=== PATIENT | male | born 1940 | race Caucasian/White ===

== ENCOUNTER 2017-09-21 00:43 | Emergency (ER) | payer OTHER ==
--- OUTSIDE RECORDS SUMMARY | 2017-09-21 00:46 | XMS REPORT | Clinical Summary ---
:1940 Author Organization [facility] Address [address] [place] [address] Phone Care Team Providers Name Role Phone Unavailable Primary Care Provider Unavailable Allergies Active Allergy Reactions Severity Noted Date Comments Levofloxacin 10/11/2016 Penicillins 10/11/2016 Sulfa (Sulfonamide Antibiotics) 10/11/2016 Current Medications Not on file Active Problems Not on file Encounters Date Type Specialty Care Team Description 11/02/2016 Hospital Encounter Cardiology Yoana Perez Syncope, unspecified MD Jessica syncope type 11/01/2016 Outside Orders Central Scheduling Yoana Perez Syncope, unspecified MD Jessica syncope type (Primary Dx) after 09/20/2016 Social History Tobacco Use Types Packs/Day Years Used Date Never Assessed Sex Assigned at Date Recorded Not on file Last Filed Vital Signs Not on file Plan of Treatment Not on file Results ARRYTHMIA IMPLANT REPORT - SCAN (12/07/2016 1:40 PM)after 09/20/2016
[2017-09-21] MEDS ORDERED: IBUPROFEN 400 MG TAB ONE (01:22)
[2017-09-21] MEDS ORDERED: NA CHLORIDE 0.9% 1,000 ML ONE (01:22)
[2017-09-21 01:37] LABS: Absolute Lymphocytes (CBC) 1.9 K/uL (0.7-4.9); Absolute Monocytes 1.6 K/uL (0.1-1.3); Absolute Neutrophil 9.5 K/uL (1.8-8.0); Basophils % 0.3 % (0-1.3); Hematocrit 39.3 % (39.6-49.0); Lymphocytes % 14.8 % (15.3-44.8); MCH 29.6 pg (27.0-35.0); MCV 89.8 fL (80-100); MPV 7.5 fL (7.6-11.3); Monocytes % 12.3 % (3.3-12.3); RBC Red Blood Cell Count 4.38 M/uL (4.33-5.43)
[2017-09-21 01:44] LABS: Potassium 3.8 mEq/L (3.6-5.0)
--- NOTE | 2017-09-21 02:18 | EDPHYS ---
Physician Documentation [facility] Name: Gary Grimaldo Jr Age: 76 yrs Sex: Male : 1940 Arrival Date: 09/21/2017 Time: 00:50 Bed 17 Private MD: Jacky Mcmahon R ED Physician Mt Gunter HPI: 09/21 01:27 This 76 yrs old Male presents to ER via Ambulatory with complaints of Fever, jr8 Sleeping a lot. 01:27 The patient reports fever, with an emergency department temperature of 100.2 degrees jr8 Fahrenheit. Onset: The symptoms/episode began/occurred acutely, yesterday. Modifying factors: there are no obvious modifying factors. Associated signs and symptoms: Pertinent positives: cough, sore throat. Severity of symptoms: At their worst the symptoms were moderate in the emergency department the symptoms are unchanged. The patient has not experienced similar symptoms in the past. The patient has not recently seen a physician. Patient stated that he has been much more weak then normal. concerned because he has been sleeping all day. Historical: - Allergies: 01:09 Codeine; bp 01:09 PENICILLINS; bp 01:09 Levaquin; bp 01:09 Sulfa (Sulfonamide Antibiotics); bp - Home Meds: 01:09 Multaq 400 mg oral tab [Active]; primidone Oral [Active]; bp - PMHx: 01:09 ESSENTIAL TREMORS; IRREGULAR HEARTRATE; bp - Immunization history:: Adult Immunizations up to date. - Social history:: Smoking status: Patient/guardian denies using tobacco. ROS: 01:27 Eyes: Negative for injury, pain, redness, and discharge, Neck: Negative for injury, jr8 pain, and swelling, Cardiovascular: Negative for chest pain, palpitations, and edema, Abdomen/GI: Negative for abdominal pain, nausea, vomiting, diarrhea, and constipation, Back: Negative for injury and pain, MS/Extremity: Negative for injury and deformity, Skin: Negative for injury, rash, and discoloration, Neuro: Negative for headache, weakness, numbness, tingling, and seizure. 01:27 Constitutional: Positive for fatigue, fever, malaise. 01:27 ENT: Positive for sore throat, Negative for drainage from ear(s), ear pain, nasal discharge, sinus congestion, sinus pain, difficulty swallowing, difficulty handling secretions, hoarseness. 01:27 Respiratory: Positive for cough, Negative for dyspnea on exertion, shortness of breath, sputum production, wheezing. Exam: : Constitutional: This is a well developed, well nourished patient who is awake, alert, jr8 and in no acute distress. Head/Face: Normocephalic, atraumatic. Eyes: Pupils equal round and reactive to light, extra-ocular motions intact. Lids and lashes normal. Conjunctiva and sclera are non-icteric and not injected. Cornea within normal limits. Periorbital areas with no swelling, redness, or edema. Neck: Trachea midline, no thyromegaly or masses palpated, and no cervical lymphadenopathy. Supple, full range of motion without nuchal rigidity, or vertebral point tenderness. No Meningismus. Cardiovascular: Regular rate and rhythm with a normal S1 and S2. No gallops, murmurs, or rubs. Normal PMI, no JVD. No pulse deficits. Respiratory: Lungs have equal breath sounds bilaterally, clear to auscultation and percussion. No rales, rhonchi or wheezes noted. No increased work of breathing, no retractions or nasal flaring. Abdomen/GI: Soft, non-tender, with normal bowel sounds. No distension or tympany. No guarding or rebound. No evidence of tenderness throughout. Back: No spinal tenderness. No costovertebral tenderness. Full range of motion. Skin: Warm, dry with normal turgor. Normal color with no rashes, no lesions, and no evidence of cellulitis. MS/ Extremity: Pulses equal, no cyanosis. Neurovascular intact. Full, normal range of motion. Neuro: Awake and alert, GCS 15, oriented to person, place, time, and situation. Cranial nerves II-XII grossly intact. Motor strength 5/5 in all extremities. Sensory grossly intact. Cerebellar exam normal. Normal gait. :27 ENT: Exam is negative for earache, ear discharge, TM abnormalities, nasal discharge, Mouth: Lips: moist, Oral mucosa: pink and intact, moist, Gums: pink, Tongue: is moist, Posterior pharynx: Airway: patent, Tonsils: with erythema, no exudate, no ulcerations, Uvula: midline, non-edematous, no erythema, swelling, is not appreciated, erythema, that is mild. Vital Signs: 01:09 BP 146 / 60; Pulse 81; Resp 16; Temp 100.2; Pulse Ox 95% ; Weight 97.52 kg; Height 5 bp ft. 6 in. (167.64 cm); 01:52 BP 134 / 63; Pulse 72; Resp 16; Pulse Ox 97% ; bp 02:14 BP 138 / 59; Pulse 69; Resp 16; Temp 99.0; Pulse Ox 96% on R/A; bp 01:09 Body Mass Index 34.70 (97.52 kg, 167.64 cm) bp MDM: 01:04 Patient medically screened. 8 02:16 Data reviewed: vital signs, nurses notes, lab test result(s), radiologic studies, plain jr8 films, and as a result, I will discharge patient. Data interpreted: Pulse oximetry: on room air is 97 %. Interpretation: normal. Counseling: I had a detailed discussion with the patient and/or guardian regarding: the historical points, exam findings, and any diagnostic results supporting the discharge/admit diagnosis, lab results, radiology results, the need for outpatient follow up, a family practitioner, to return to the emergency department if symptoms worsen or persist or if there are any questions or concerns that arise at home. Response to treatment: the patient's symptoms have markedly improved after treatment, patient is well hydrated. 09/21 01:16 Order name: Influenza Screen (a \T\ B); Complete Time: 01:50 09/21 01:16 Order name: Strep; Complete Time: 01:50 09/21 01:16 Order name: XRAY Chest (1 view) 09/21 01:16 Order name: CBC with Diff; Complete Time: 01:38 09/21 01:16 Order name: Basic Metabolic Panel; Complete Time: :50 09/21 01:16 Order name: IV; Complete Time: : Administered Medications: 01:29 Drug: NS 0.9% 1000 ml Route: IV; Rate: 1000 ml; Site: right antecubital; bp 02:39 Follow up: IV Status: Completed infusion; IV Intake: 1000ml bp 01:29 Drug: Motrin 600 mg Route: PO; bp 02:19 Follow up: Response: Temperature is decreased bp Disposition: 07:56 Co-signature as Attending Physician, Mt Gunter MD I agree with the assessment and jacinto plan of care. Disposition: 09/21/17 02:17 Discharged to Home. Impression: Viral infection, unspecified, Dehydration. - Condition is Stable. - Discharge Instructions: Dehydration, Adult, Viral Infections. - Medication Reconciliation Form, Thank You Letter, Antibiotic Education, Prescription Opioid Use form. - Follow up: Jacky Mcmahon MD; When: 1 - 2 days; Reason: Recheck today's complaints, Continuance of care, Re-evaluation by your physician. - Problem is new. - Symptoms have improved. Signatures: Dispatcher [employer] EDMS Mt Gunter MD MD cha Roszak, Josh, PA PA jr8 Perico Ren, RN RN bp Corrections: (The following items were deleted from the chart) 01:56 01:55 Urine Dipstick-Ancillary ordered. jr8 jr8
--- NOTE | 2017-09-21 02:18 | ER ---
Nurse's Notes [facility] Name: Gary Grimaldo Jr Age: 76 yrs Sex: Male : 1940 Arrival Date: 09/21/2017 Time: 00:50 Bed 17 Private MD: Jacky Mcmahon R Diagnosis: Viral infection, unspecified;Dehydration Presentation: 09/21 01:05 Presenting complaint: Patient states: I'VE HAD A FEVER AND FELT LIKE I HAD THE FLU. bp Transition of care: patient was not received from another setting of care. Onset of symptoms was September 18, 2017. Initial Sepsis Screen: Does the patient meet any 2 criteria? No. Patient's initial sepsis screen is negative. Does the patient have a suspected source of infection? No. Patient's initial sepsis screen is negative. Care prior to arrival: None. 01:05 Method Of Arrival: Ambulatory bp 01:05 Acuity: MARIO 3 bp Triage Assessment: 01:09 General: Appears in no apparent distress. comfortable, ill, Behavior is calm, bp cooperative, appropriate for age. Pain: Complains of pain in left aspect of posterior pharynx and right aspect of posterior pharynx. EENT: No deficits noted. Neuro: Level of Consciousness is awake, alert, obeys commands, Oriented to person, place, time, situation, Appropriate for age. Cardiovascular: No deficits noted. Respiratory: Airway is patent Respiratory effort is even, unlabored, Respiratory pattern is regular, symmetrical. GI: No deficits noted. : No signs and/or symptoms were reported regarding the genitourinary system. Derm: No signs and/or symptoms reported regarding the dermatologic system. Musculoskeletal: Circulation, motion, and sensation intact. Range of motion:. Historical: - Allergies: 01:09 Codeine; bp 01:09 PENICILLINS; bp 01:09 Levaquin; bp 01:09 Sulfa (Sulfonamide Antibiotics); bp - Home Meds: 01:09 Multaq 400 mg oral tab [Active]; primidone Oral [Active]; bp - PMHx: 01:09 ESSENTIAL TREMORS; IRREGULAR HEARTRATE; bp - Immunization history:: Adult Immunizations up to date. - Social history:: Smoking status: Patient/guardian denies using tobacco. Screenin:12 Abuse screen: Denies threats or abuse. Denies injuries from another. Nutritional bp screening: No deficits noted. Tuberculosis screening: No symptoms or risk factors identified. Fall Risk None identified. Assessment: 01:12 Reassessment: SEE TRIAGE NOTE. bp 02:18 Reassessment: ALL CURRENT EXAMS RESULTED AND UNREMARKABLE. D/C ON HOLD FOR IVF bp COMPLETION. 02:37 Reassessment: PT D/C HOME WITH FAMILY, DX WITH UNSPECIFIED VIRUS AND DEHYDRATION. bp Vital Signs: 01:09 BP 146 / 60; Pulse 81; Resp 16; Temp 100.2; Pulse Ox 95% ; Weight 97.52 kg; Height 5 bp ft. 6 in. (167.64 cm); 01:52 BP 134 / 63; Pulse 72; Resp 16; Pulse Ox 97% ; bp 02:14 BP 138 / 59; Pulse 69; Resp 16; Temp 99.0; Pulse Ox 96% on R/A; bp 01:09 Body Mass Index 34.70 (97.52 kg, 167.64 cm) bp ED Course: 00:50 Patient arrived in ED. es 00:50 Jacky Mcmahon MD is Private Physician. es 00:56 Perico Ren, MARCIA is Primary Nurse. bp 01:04 Ran Menjivar PA is PHCP. jr8 01:04 Mt Gunter MD is Attending Physician. jr8 01:06 Triage completed. bp 01:09 Arm band placed on. bp 01:12 Patient has correct armband on for positive identification. Bed in low position. Call bp light in reach. Side rails up X2. Adult w/ patient. 01:30 Inserted saline lock: 20 gauge in right antecubital area, using aseptic technique. bp Blood collected. 01:34 X-ray completed. Portable x-ray completed in exam room. Patient tolerated procedure kw well. 01:37 XRAY Chest (1 view) In Process Unspecified. EDMS 02:16 Jacky Mcmahon MD is Referral Physician. jr8 02:37 No provider procedures requiring assistance completed. IV discontinued, intact, bp bleeding controlled, No redness/swelling at site. Pressure dressing applied. Administered Medications: 01:29 Drug: NS 0.9% 1000 ml Route: IV; Rate: 1000 ml; Site: right antecubital; bp 02:39 Follow up: IV Status: Completed infusion; IV Intake: 1000ml bp 01:29 Drug: Motrin 600 mg Route: PO; bp 02:19 Follow up: Response: Temperature is decreased bp Intake: 02:39 IV: 1000ml; Total: 1000ml. bp Outcome: 02:17 Discharge ordered by MD. fernandez 02:38 Discharged to home via wheelchair, with family. bp 02:38 Condition: stable 02:38 Discharge instructions given to patient, family, Instructed on discharge instructions, follow up and referral plans. Demonstrated understanding of instructions, follow-up care. 02:40 Patient left the ED. bp Signatures: Dispatcher [employer] Amber Luna Kimberlee kw Roszak, Josh, PA PA jr8 Perico Ren, RN RN bp
--- NOTE | 2017-09-21 08:58 | RAD REPORT ---
EXAM DESCRIPTION: RAD - Chest Single View - 09/21/2017 1:37 am CLINICAL HISTORY: Chest pain. COMPARISON: 06/06/2010 FINDINGS: Portable technique limits examination quality. The lungs are grossly clear. The heart is normal in size. No displaced fractures.Defibrillator noted. Cervical spine fusion plate is present. IMPRESSION: No acute intrathoracic process suspected.
== END 2017-09-21 02:40 | disposition home or self-care (01) ==
LOC: ER 00:43
DX: B34.9 Viral infection, unspecified (principal); E86.0 Dehydration; Z88.0 Allergy status to penicillin; Z88.1 Allergy status to other antibiotic agents; Z88.2 Allergy status to sulfonamides; Z88.5 Allergy status to narcotic agent
CPT/HCPCS: 36415; 71045; 80048; 85025; 87070; 87081; 87804 ×2; 96360; 99284; J7030

== ENCOUNTER 2019-05-04 20:11 | Observation (INO) | payer OTHER ==
--- OUTSIDE RECORDS SUMMARY | 2019-05-04 20:14 | XMS REPORT | Summary of Care ---
:1940 Author Organization [facility] [place] [address] Care Team Providers Name Role Phone Jacky Russo MD Primary Care Provider Reason for Visit Reason Comments Skin Check upper body Encounter Details Date Type Department Care Team Description 01/17/2019 Office Visit [facility] Gwen Saha, Skin Check ( upper Medicine Dermatology MD body) [address], [place] [address],[place] [address] [address] [place] [address] [phone] Allergies Active Allergy Reactions Severity Noted Date Comments Levaquin Medium 11/03/2011 Penicillins Medium 11/03/2011 Sulfa Drugs Cross Reactors Medium 11/03/2011 documented as of this encounter (statuses as of 01/20/2019) Medications Medication Sig Dispensed Refills Start Date End Date Status Dronedarone HCl Take by mouth. 0 Active (MULTAQ OR) ASPIRIN 0 Active primidone (MYSOLINE) 0 03/15/2017 Active 50 MG tablet MULTAQ 400 MG TABS 0 03/20/2017 Active fluoruracil (CARAC) Apply to affected 30 g 3 08/02/2018 Active 0.5 % cream skin daily for 30 days. If overly irritated please stop applying for 3-5 days. fluorouracil (EFUDEX) Apply topically to 40 g 3 08/06/2018 Active 5 % cream affected area twice a day for 2-4 weeks metoprolol (LOPRESSOR) Take 25 mg by 0 Active 25 MG tablet mouth. ketoconazole (NIZORAL) Apply to scalp 120 mL 3 10/24/2018 Active 2 % shampoo 2-3x per week documented as of this encounter (statuses as of 01/20/2019) Active Problems Problem Noted Date Multiple melanocytic nevi 06/17/2015 Squamous cell carcinoma 02/27/2015 BCC (basal cell carcinoma), face 11/26/2012 Contact dermatitis 04/06/2012 AK (actinic keratosis) 11/03/2011 Lentigo 11/03/2011 Keratosis seborrheica 11/03/2011 Personal history of skin cancer 11/03/2011 Personal history of malignant melanoma 11/03/2011 documented as of this encounter (statuses as of 01/20/2019) Resolved Problems Problem Noted Date Resolved Date Neoplasm of uncertain behavior of skin 11/03/2011 02/27/2015 Benign neoplasm of other specified sites of skin 11/03/2011 02/27/2015 documented as of this encounter (statuses as of 01/20/2019) Social History Tobacco Use Types Packs/Day Years Used Date Never Smoker Smokeless Tobacco: Current User Sex Assigned at Date Recorded Not on file Job Start Date Occupation Industry Not on file Not on file Not on file Travel History Travel Start Travel End No recent travel history available. documented as of this encounter Last Filed Vital Signs Not on filedocumented in this encounter Progress Notes Gwen Saha MD - 01/17/2019 2:45 PM CDTTeaching Physician Note - I personally examined this patient with the resident. I agree with all the components of the exam as delineated in the resident's note above. I have personally reviewed the past medical records. I have discussed the patient's case with the resident and agree with the history as well as diagnosis and assessment/plan--see resident note for full details All procedures were performed by me, personally Gwen Saha MD Public Health Training Assistant Dermatology lAnna herring MD - 01/17/2019 2:45 PM CDT This is a 78 y.o. wm who presents for f/u for NMSC The patient is concerned about skin cancer and points to multiple areas of concern Patient is presently complaining of spots on body, Scaling face Patient's history is notable for nmsc and MM Physical exam: well developed, well nourished, anicteric wm, alert and oriented , non anxious, in noacute distress. Upper body exam. The following areas were examined: scalp, ears, face, eyelids, lips, neck, chest, abdomen, back, bilateral upper extremities, bilateral hands. All were found to be normal aside from the following findings: 1. Regular brown/veliz/pink macules/papules face, torso, extremities 2. Well healed scars No cervical, axillary lymphadenopathy 3. Scaly firm papule R forearm 4. Rough scaling macules Face and bilateral forearms 5. erythematous scaling patches face and scalp 6. [place] scaly macule of L neck Assessment and Plan: 1. Nevi, lentigines, Seborrheic keratoses: -self skin checks -Sun protection discussed -yearly exams or as directed -discussed signs of worrisome change Also recommended yearly dental exams, notification if hairdresser notices anything abnormal 2. H/o nmsc: No evidence of recurrence, follow History of melanoma: No evidence of recurrence, continue skin checks, Sun protection discussed, self checks 3. isk R/o scc: After risks and benefits explained, consent obtained, tangential biopsy x 1 was performed on right forearm to remove epidermal and partial dermal tissue for the purpose of diagnostic pathologic examination, patient tolerated well, Wound care reviewed 4. AKs: Risks benefits explained, consent obtained LN2 x >15 face and neck, patient tolerated well 5. leonid derm, improving: Reassurance. C/w Ketoconazole shampoo 2-3 times weekly 6. NUB ddx AK s/p LN treatment r/o SCC: After risks and benefits explained, consent obtained, tangential biopsy x 1 was performed on left neck to remove epidermal and partial dermal tissue for the purpose of diagnostic pathologic examination, patient tolerated well, Wound care reviewed rv 3mo documented in this encounter Plan of Treatment Date Type Specialty Care Team Description 04/18/2019 Office Visit Dermatology Gwen Saha MD [address] [place] [address] [address] [place] [address] 07/23/2019 Office Visit Dermatology Gwen Saha MD [address] [place] [address] [address] [place], [place] [id number] Name Type Priority Associated Diagnoses Order Schedule CA TANGENTIAL BIOPSY CA Charge Routine Neoplasm of uncertain Ordered: 01/20 SKIN SINGLE LESION behavior of skin CA TANGENTIAL BIOPSY CA Charge Routine Neoplasm of uncertain Ordered: 01/20 SKIN EA SEP/ADDITIONAL behavior of skin LESION CA DESTRUC CA Charge Routine AK (actinic keratosis) Ordered: 01/20/2019 PREMALIGNANT,15+ LESIONS(90500) Health Maintenance Due Date Last Done Comments MEDICARE AWV 1940 TETANUS SHOT (ADULT) 1957 BMI FOLLOW UP PLAN 1960 FALL SCREEN 12/11/2007 PNEUMOVAX >=65 (PPSV23) 12/11/2007 PREVNAR >=65 (PCV13) 12/11/2007 FLU VACCINE > 6 MONTHS 12/27/2018 documented as of this encounter Results Not on filedocumented in this encounter Visit Diagnoses Diagnosis Neoplasm of uncertain behavior of skin - Primary AK (actinic keratosis) Actinic keratosis Lentigo Other dyschromia Keratosis seborrheica Other seborrheic keratosis Personal history of skin cancer Personal history of other malignant neoplasm of skin Personal history of malignant melanoma Personal history of malignant melanoma of skin Multiple melanocytic nevi documented in this encounter Insurance Payer Benefit Plan / Subscriber ID Effective Dates Phone Address Type Group MEDICARE MEDICARE PART A xxxxxxxxxxx 2014-Present [address] Medicare & [place] [address] [employer] INDEMNITY/TRADIT xxxxxxxxx 2016-Present [address] Indemnity [employer] - [place], [place] [employer] [phone] documented as of this encounter
[2019-05-04] MEDS ORDERED: CEFTRIAXONE/SWI 1gm 2 GM/20 ML SYR ONE (21:44)
[2019-05-04] MEDS ORDERED: NA CHLORIDE 0.9% 1,000 ML ONE (21:44)
[2019-05-04] MEDS ORDERED: METRONIDAZOLE 500mg IVPB 500 MG/100 ML BAG IV ONE (21:44)
[2019-05-04 22:01] LABS: Absolute Lymphocytes (CBC) 2.4 K/uL (0.7-4.9); Basophils % 0.7 % (0-1.3); Hematocrit 39.4 % (39.6-49.0); Lymphocytes % 26.9 % (15.3-44.8); RBC Red Blood Cell Count 4.34 M/uL (4.33-5.43)
[2019-05-04 22:08] LABS: Protime INR 1.04
[2019-05-04 22:19] LABS: ALT/SGPT 19 U/L (12-78); AST/SGOT 8 U/L (15-37); Albumin 3.3 g/dL (3.4-5.0); Alkaline Phosphatase 84 U/L (45-117); BUN Blood Urea Nitrogen 15 mg/dL (7-18); Bicarbonate 31 mmol/L (21-32); Bilirubin Direct < 0.1 mg/dL (0-0.2); Bilirubin Total 0.3 mg/dL (0.2-1.0); Glucose Level 94 mg/dL (74-106); Lipase 160 U/L (73-393); Magnesium 2.5 mg/dL (1.8-2.4); NT PRO-BNP 199 pg/mL (<450); Potassium 3.9 mmol/L (3.5-5.1); Protein, Total 6.7 g/dL (6.4-8.2); Sodium Level 140 mmol/L (136-145); Troponin (Emerg Dept Use Only) < 0.02 ng/mL (0.0-0.045)
--- NOTE | 2019-05-05 00:25 | ER ---
Nurse's Notes [facility] Name: Gary Grimaldo Jr Age: 78 yrs Sex: Male : 1940 Arrival Date: 05/04/2019 Time: 20:[address] Private MD: Diagnosis: Gastrointestinal hemorrhage, unspecified-lower;Abdominal tenderness;Pleural effusion in conditions classified elsewhere Presentation: 05/04 20:39 Presenting complaint: Patient states: Rectal bleed started this afternoon about 6pm. ca1 Heavy and bright red with clots. Bleeding is described as oozing and difficult to stop. We had to pack him. Takes baby aspirin daily for a long time. No history of GI bleed. Couple days, felt abdominal pain on the L side. Denies dizziness and lightheadedness, diarrhea. Transition of care: patient was not received from another setting of care. Onset of symptoms was May 04, 2019. Risk Assessment: Do you want to hurt yourself or someone else? Patient reports no desire to harm self or others. Initial Sepsis Screen: Does the patient meet any 2 criteria? No. Patient's initial sepsis screen is negative. Does the patient have a suspected source of infection? No. Patient's initial sepsis screen is negative. Care prior to arrival: None. 20:39 Method Of Arrival: Ambulatory ca1 20:39 Acuity: MARIO 3 ca1 Historical: - Allergies: 20:49 PENICILLINS; ca1 20:49 Codeine; ca1 20:49 Levaquin; ca1 20:49 Sulfa (Sulfonamide Antibiotics); ca1 - PMHx: 20:49 ESSENTIAL TREMORS; IRREGULAR HEARTRATE; ca1 - PSHx: 20:49 CABG; Tonsillectomy; Shoulder Surgery; ca1 - Immunization history:: Adult Immunizations up to date, Flu vaccine is up to date. Pneumococcal vaccine is up to date. - Social history:: Smoking status: Patient/guardian denies using tobacco. - Ebola Screening: : Patient negative for fever greater than or equal to 101.5 degrees Fahrenheit, and additional compatible Ebola Virus Disease symptoms Patient denies exposure to infectious person Patient denies travel to an Ebola-affected area in the 21 days before illness onset No symptoms or risks identified at this time. - Family history:: not pertinent. Screenin:29 Abuse screen: Denies threats or abuse. Denies injuries from another. Nutritional rr5 screening: No deficits noted. Tuberculosis screening: No symptoms or risk factors identified. Fall Risk IV access (20 points). Total Smith Fall Scale indicates No Risk (0-24 pts). Assessment: 21:30 General: Appears in no apparent distress. comfortable, Behavior is calm, cooperative, rr5 appropriate for age. 21:30 Pain: Complains of pain in left lower quadrant Pain does not radiate. Pain Quality of rr5 pain is described as aching, Pain began gradually, Is intermittent. Neuro: Level of Consciousness is awake, alert, obeys commands, Oriented to person, place, time, situation, Appropriate for age. Cardiovascular: Capillary refill < 3 seconds Patient's skin is warm and dry. Respiratory: Airway is patent Respiratory effort is even, unlabored, Respiratory pattern is regular, symmetrical. GI: Abdomen is round Stools are reported to be bright red stool. Reports lower abdominal pain, bloody stool. : No signs and/or symptoms were reported regarding the genitourinary system. EENT: No signs and/or symptoms were reported regarding the EENT system. Derm: Skin is intact, is healthy with good turgor, Skin temperature is warm. Musculoskeletal: Circulation, motion, and sensation intact. Capillary refill < 3 seconds. 23:00 Reassessment: Patient appears in no apparent distress at this time. Patient is alert, rr5 oriented x 3, equal unlabored respirations, skin warm/dry/pink. oral contrast consumed. CT staff informed. 05/05 00:00 Reassessment: Patient appears in no apparent distress at this time. Patient is alert, rr5 oriented x 3, equal unlabored respirations, skin warm/dry/pink. no complaints made awaiting for CT report. 01:00 Reassessment: Patient appears in no apparent distress at this time. No changes from rr5 previously documented assessment. Patient is alert, oriented x 3, equal unlabored respirations, skin warm/dry/pink. 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 Reassessment: hospitalist at bedside examining the patient. 01:55 Reassessment: Patient appears in no apparent distress at this time. Patient is alert, rr5 oriented x 3, equal unlabored respirations, skin warm/dry/pink. hospitalist informed BP 177/75 mmHg with verbal order made and carried out. Vital Signs: 05/04 20:49 BP 179 / 83; Pulse 70; Resp 16 S; Temp 98.2(O); Pulse Ox 97% on R/A; Weight 94.35 kg ca1 (R); Height 5 ft. 7 in. (170.18 cm) (R); Pain 0/10; 22:05 BP 182 / 78; Pulse 60; Resp 16; Pulse Ox 98% ; rr5 23:00 BP 201 / 98; Pulse 71; Resp 18; Pulse Ox 99% ; rr5 05/05 00:00 BP 172 / 88; Pulse 71; Resp 80; Pulse Ox 98% ; rr5 01:00 BP 163 / 104; Pulse 79; Resp 17; Pulse Ox 100% ; rr5 01:40 BP 179 / 85; Pulse 68; Resp 16; Pulse Ox 98% on R/A; rr5 01:55 BP 177 / 75; Pulse 72; Resp 18; Temp 98.1; Pulse Ox 99% ; rr5 02:05 BP 157 / 70; Pulse 69; Resp 15; Pulse Ox 99% on R/A; rr5 05/04 20:49 Body Mass Index 32.58 (94.35 kg, 170.18 cm) ca1 05/04 23:00 ED provider aware rr5 ED Course: 20:13 Patient arrived in ED. cl3 20:47 Triage completed. ca1 20:49 Arm band placed on right wrist. ca1 21:25 Mt Gunter MD is Attending Physician. jacinto 21:29 Efrem Ramos, MARCIA is Primary Nurse. rr5 21:30 Patient has correct armband on for positive identification. Placed in gown. Bed in low rr5 position. Call light in reach. Side rails up X2. school lunch monitor on. Pulse ox on. NIBP on. 21:57 Initial lab(s) drawn, by ma, sent to lab. Inserted saline lock: 20 gauge in right ak1 antecubital area, using aseptic technique. Blood collected. 22:00 EKG done, by ED staff, reviewed by Mt Gunter MD. rr5 23:26 XRAY Chest (1 view) In Process Unspecified. EDMS 12 00:23 Kumar Jesus MD is Hospitalizing Provider. jacinto 00:47 CT Abd/Pelvis - PO and IV Contrast In Process Unspecified. EDMS 02:04 No provider procedures requiring assistance completed. Patient admitted, IV remains in rr5 place. intact, No redness/swelling at site. Administered Medications: 05/04 21:45 Drug: NS 0.9% 1000 ml Route: IV; Rate: 1 bolus; Site: right antecubital; rr5 23:00 Follow up: Response: No adverse reaction; IV Status: Completed infusion; IV Intake: rr5 1000ml 21:46 Drug: Rocephin 2 grams Route: IV; Rate: per protocol; Site: right antecubital; rr5 05/05 02:07 Follow up: Response: No adverse reaction; IV Status: Completed infusion; IV Intake: [id number] 05/04 22:02 Drug: Flagyl 500 mg Volume: 100 ml; Route: IVPB; Rate: 200 ml/hr; Infused Over: 30 rr5 mins; Site: right antecubital; 22:30 Follow up: Response: No adverse reaction; IV Status: Completed infusion; IV Intake: rr5 100ml 05/05 01:58 Drug: hydrALAZINE 10 mg {Note: verbal order by .} Route: IV; Rate: bolus; Site: rr5 right antecubital; 02:06 Follow up: Response: Blood pressure is lowered; IV Status: Completed infusion rr5 Intake: 05/04 22:30 IV: 100ml; Total: 100ml. rr5 23:00 IV: 1000ml; Total: 1100ml. rr5 05/05 02:07 IV: 20ml; Total: 1120ml. rr5 Outcome: 00:24 Decision to Hospitalize by Provider. jacinto 02:04 Admitted to Med/surg accompanied by tech, room 215, with chart, Report called to rr5 carl 02:04 Condition: stable 02:04 Instructed on the need for admit. 02:27 Patient left the ED. rr5 Signatures: Dispatcher [employer] EDMS Mt Gunter MD MD cha Krenek, Amber RN RN ak1 Efrem Ramos RN RN rr5 Melisa Cox RN RN ca1 Teresa Rodriguez cl3
--- NOTE | 2019-05-05 00:26 | EDPHYS ---
Physician Documentation [facility] Name: Gary Grimaldo Jr Age: 78 yrs Sex: Male : 1940 Arrival Date: 05/04/2019 Time: 20:[address] Private MD: ED Physician Mt Gunter HPI: 05/04 21:39 This 78 yrs old Male presents to ER via Ambulatory with complaints of Rectal jcainto Bleeding. 21:39 The patient presents to the emergency department with bleeding from the rectum/anus. jacinto Onset: The symptoms/episode began/occurred 2 day(s) ago. Context: the patient has no known special context relating to the rectal area complaint(s). Modifying factors: The symptoms are alleviated by nothing, The symptoms are aggravated by bowel movement. Associate signs and symptoms: The patient has no apparent associated signs or symptoms. The patient has not experienced similar symptoms in the past. Historical: - Allergies: 20:49 PENICILLINS; ca1 20:49 Codeine; ca1 20:49 Levaquin; ca1 20:49 Sulfa (Sulfonamide Antibiotics); ca1 - PMHx: 20:49 ESSENTIAL TREMORS; IRREGULAR HEARTRATE; ca1 - PSHx: 20:49 CABG; Tonsillectomy; Shoulder Surgery; ca1 - Immunization history:: Adult Immunizations up to date, Flu vaccine is up to date. Pneumococcal vaccine is up to date. - Social history:: Smoking status: Patient/guardian denies using tobacco. - Ebola Screening: : Patient negative for fever greater than or equal to 101.5 degrees Fahrenheit, and additional compatible Ebola Virus Disease symptoms Patient denies exposure to infectious person Patient denies travel to an Ebola-affected area in the 21 days before illness onset No symptoms or risks identified at this time. - Family history:: not pertinent. ROS: 21:39 Constitutional: Negative for fever, chills, and weight loss, Eyes: Negative for injury, jacinto pain, redness, and discharge, ENT: Negative for injury, pain, and discharge, Neck: Negative for injury, pain, and swelling, Cardiovascular: Negative for chest pain, palpitations, and edema, Respiratory: Negative for shortness of breath, cough, wheezing, and pleuritic chest pain, Back: Negative for injury and pain, : Negative for injury, bleeding, discharge, and swelling, MS/Extremity: Negative for injury and deformity, Skin: Negative for injury, rash, and discoloration, Neuro: Negative for headache, weakness, numbness, tingling, and seizure, Psych: Negative for depression, anxiety, suicide ideation, homicidal ideation, and hallucinations, Allergy/Immunology: Negative for hives, rash, and allergies, Endocrine: Negative for neck swelling, polydipsia, polyuria, polyphagia, and marked weight changes, Hematologic/Lymphatic: Negative for swollen nodes, abnormal bleeding, and unusual bruising. 21:39 Abdomen/GI: Positive for abdominal cramps, rectal bleeding. Exam: 21:39 Constitutional: This is a well developed, well nourished patient who is awake, alert, jacinto and in no acute distress. Head/Face: Normocephalic, atraumatic. Eyes: Pupils equal round and reactive to light, extra-ocular motions intact. Lids and lashes normal. Conjunctiva and sclera are non-icteric and not injected. Cornea within normal limits. Periorbital areas with no swelling, redness, or edema. ENT: Nares patent. No nasal discharge, no septal abnormalities noted. Tympanic membranes are normal and external auditory canals are clear. Oropharynx with no redness, swelling, or masses, exudates, or evidence of obstruction, uvula midline. Mucous membranes moist. Neck: Trachea midline, no thyromegaly or masses palpated, and no cervical lymphadenopathy. Supple, full range of motion without nuchal rigidity, or vertebral point tenderness. No Meningismus. Chest/axilla: Normal chest wall appearance and motion. Nontender with no deformity. No lesions are appreciated. Cardiovascular: Regular rate and rhythm with a normal S1 and S2. No gallops, murmurs, or rubs. Normal PMI, no JVD. No pulse deficits. Respiratory: Lungs have equal breath sounds bilaterally, clear to auscultation and percussion. No rales, rhonchi or wheezes noted. No increased work of breathing, no retractions or nasal flaring. Back: No spinal tenderness. No costovertebral tenderness. Full range of motion. Male : Normal genitalia with no discharge or lesions. Skin: Warm, dry with normal turgor. Normal color with no rashes, no lesions, and no evidence of cellulitis. MS/ Extremity: Pulses equal, no cyanosis. Neurovascular intact. Full, normal range of motion. Neuro: Awake and alert, GCS 15, oriented to person, place, time, and situation. Cranial nerves II-XII grossly intact. Motor strength 5/5 in all extremities. Sensory grossly intact. Cerebellar exam normal. Normal gait. Psych: Awake, alert, with orientation to person, place and time. Behavior, mood, and affect are within normal limits. 21:39 Abdomen/GI: Inspection: abdomen appears normal, Bowel sounds: normal, Palpation: mild abdominal tenderness, in the left lower quadrant, Rectal exam: rectal tone normal, Stool: guaiac positive, hemorrhoid(s), external, mass, is not appreciated, swelling, is not appreciated, tenderness, is not appreciated, Liver: no appreciated palpable abnormalities, Hernia: not appreciated. Vital Signs: 20:49 BP 179 / 83; Pulse 70; Resp 16 S; Temp 98.2(O); Pulse Ox 97% on R/A; Weight 94.35 kg ca1 (R); Height 5 ft. 7 in. (170.18 cm) (R); Pain 0/10; 22:05 BP 182 / 78; Pulse 60; Resp 16; Pulse Ox 98% ; rr5 23:00 BP 201 / 98; Pulse 71; Resp 18; Pulse Ox 99% ; rr5 05/05 00:00 BP 172 / 88; Pulse 71; Resp 80; Pulse Ox 98% ; rr5 01:00 BP 163 / 104; Pulse 79; Resp 17; Pulse Ox 100% ; rr5 01:40 BP 179 / 85; Pulse 68; Resp 16; Pulse Ox 98% on R/A; rr5 01:55 BP 177 / 75; Pulse 72; Resp 18; Temp 98.1; Pulse Ox 99% ; rr5 02:05 BP 157 / 70; Pulse 69; Resp 15; Pulse Ox 99% on R/A; rr5 05/04 20:49 Body Mass Index 32.58 (94.35 kg, 170.18 cm) ca1 05/04 23:00 ED provider aware rr5 MDM: 21:25 Patient medically screened. [facility] 21:39 Data reviewed: vital signs, nurses notes, lab test result(s), EKG, radiologic studies, [facility] CT scan, plain films. 05/04 21:57 Order name: Basic Metabolic Panel; Complete Time: 23:21 EDMS 05/04 21:57 Order name: Liver (Hepatic) Function; Complete Time: 23:21 EDIL 05/04 21:57 Order name: Troponin (Emerg Dept Use Only); Complete Time: 23:21 EDIL 05/04 21:57 Order name: NT PRO-BNP; Complete Time: 23:21 EDIL 05/04 21:57 Order name: Magnesium; Complete Time: 23:21 EDIL 05/04 21:57 Order name: Lipase; Complete Time: 23:21 EDIL 05/04 21:39 Order name: XRAY Chest (1 view) [facility] 05/04 21:39 Order name: EKG; Complete Time: 22:51 [facility] 05/04 21:39 Order name: CT Abd/Pelvis - PO and IV Contrast [facility] 05/04 21:57 Order name: CBC with Automated Diff; Complete Time: 23:21 EDIL 05/04 21:57 Order name: Protime (+INR); Complete Time: 23:21 EDIL 05/05 01:17 Order name: CBC with Automated Diff EDIL 05/05 01:17 Order name: CBC with Automated Diff EDIL 05/05 01:17 Order name: CBC with Automated Diff EDIL 05/05 01:17 Order name: Protime (+INR) EDIL 05/05 01:17 Order name: Protime (+INR) EDIL 05/05 01:17 Order name: PTT, Activated Partial Thromb EDIL 05/05 01:17 Order name: PTT, Activated Partial Thromb EDIL 05/04 21:39 Order name: Cardiac monitoring; Complete Time: 21:43 [facility] 05/04 21:39 Order name: EKG - Nurse/Tech; Complete Time: 22:02 [facility] 05/04 21:39 Order name: IV Saline Lock; Complete Time: 21:57 [facility] 05/04 21:39 Order name: Labs collected and sent; Complete Time: 21:57 [facility] 05/04 21:39 Order name: O2 Per Protocol; Complete Time: 21:43 [facility] 05/04 21:39 Order name: O2 Sat Monitoring; Complete Time: 21:43 [facility] 05/05 01:16 Order name: CONS Pharmacy Consult EDIL 05/05 01:16 Order name: CONS Physician Consult EDIL 05/05 01:16 Order name: NPO EDIL 05/05 01:16 Order name: EKG Electrocardiogram EDIL 05/05 01:16 Order name: EKG Electrocardiogram EDMS 05/05 01:16 Order name: EKG Electrocardiogram EDMS 05/05 01:16 Order name: EKG Electrocardiogram EDMS 05/05 01:16 Order name: EKG Electrocardiogram EDMS 05/05 01:17 Order name: EKG Electrocardiogram EDMS 05/05 01:17 Order name: EKG Electrocardiogram EDMS 05/05 01:17 Order name: EKG Electrocardiogram EDMS 05/05 01:17 Order name: EKG Electrocardiogram EDMS 05/05 01:17 Order name: EKG Electrocardiogram EDMS 05/05 01:17 Order name: EKG Electrocardiogram EDMS Administered Medications: 21:45 Drug: NS 0.9% 1000 ml Route: IV; Rate: 1 bolus; Site: right antecubital; rr5 23:00 Follow up: Response: No adverse reaction; IV Status: Completed infusion; IV Intake: rr5 1000ml 21:46 Drug: Rocephin 2 grams Route: IV; Rate: per protocol; Site: right antecubital; rr5 05/05 02:07 Follow up: Response: No adverse reaction; IV Status: Completed infusion; IV Intake: [id number] 05/04 22:02 Drug: Flagyl 500 mg Volume: 100 ml; Route: IVPB; Rate: 200 ml/hr; Infused Over: 30 rr5 mins; Site: right antecubital; 22:30 Follow up: Response: No adverse reaction; IV Status: Completed infusion; IV Intake: rr5 100ml 05/05 01:58 Drug: hydrALAZINE 10 mg {Note: verbal order by .} Route: IV; Rate: bolus; Site: rr5 right antecubital; 02:06 Follow up: Response: Blood pressure is lowered; IV Status: Completed infusion rr5 Disposition: 05/05/19 00:24 Hospitalization ordered by Kumar Jesus for Inpatient Admission. Preliminary diagnosis are Gastrointestinal hemorrhage, unspecified - lower, Abdominal tenderness, Pleural effusion in conditions classified elsewhere. - Bed requested for Telemetry/MedSurg (Inpatient). - Status is Inpatient Admission. rr5 - Condition is Fair. - Problem is new. - Symptoms have improved. UTI on Admission? No Signatures: Dispatcher [employer] EDMt Alaniz MD MD cha Garcia, Cindy, MARCIA RN Efrem Patel RN RN rr5 Melisa Cox RN RN ca1 Corrections: (The following items were deleted from the chart) 05/04 22:59 22:50 BASIC METABOLIC PANEL+C.LAB.BRZ ordered. [facility] EDIL :59 22:50 CBC+H.LAB.BRZ ordered. [facility] EDIL :59 22:50 HEPATIC FUNCTION+C.LAB.BRZ ordered. EDIL EDIL :59 22:50 MAGNESIUM+C.LAB.BRZ ordered. [facility] EDIL 22:59 22:50 PROBNP+C.LAB.BRZ ordered. [facility] EDIL :59 22:51 PROTIME (+INR)+COAG.LAB.BRZ ordered. [facility] EDIL :59 22:51 TROPONIN (EMERG DEPT USE ONLY)+C.LAB.BRZ ordered. [facility] EDIL :59 22:51 LIPASE+C.LAB.BRZ ordered. [facility] 05/05 01:09 00:24 Hospitalization Ordered by Kumar Jesus MD for Inpatient Admission. Preliminary jacinto diagnosis is Gastrointestinal hemorrhage, unspecified - lower; Abdominal tenderness. Bed requested for Telemetry/MedSurg (Inpatient). Status is Inpatient Admission. Condition is Fair. Problem is new. Symptoms have improved. UTI on Admission? No. jacinto 01:19 01:09 05/05/2019 00:24 Hospitalization Ordered by Kumar Jesus MD for Inpatient cg Admission. Preliminary diagnosis is Gastrointestinal hemorrhage, unspecified - lower; Abdominal tenderness; Pleural effusion in conditions classified elsewhere. Bed requested for Telemetry/MedSurg (Inpatient). Status is Inpatient Admission. Condition is Fair. Problem is new. Symptoms have improved. UTI on Admission? No. jacinto 02:27 01:19 05/05/2019 00:24 Hospitalization Ordered by Kumar Jesus MD for Inpatient rr5 Admission. Preliminary diagnosis is Gastrointestinal hemorrhage, unspecified - lower; Abdominal tenderness; Pleural effusion in conditions classified elsewhere. Bed requested for Telemetry/MedSurg (Inpatient). Status is Inpatient Admission. Condition is Fair. Problem is new. Symptoms have improved. UTI on Admission? No. cg
[2019-05-05] MEDS ORDERED: ACETAMINOPHEN 500 MG TAB PO PRN (01:08)
[2019-05-05] MEDS ORDERED: ONDANSETRON 4 MG/2 ML VIAL IV PRN (01:08)
[2019-05-05] MEDS ORDERED: MORPHINE 4 MG/ML SYR IV PRN (01:08)
[2019-05-05] MEDS ORDERED: HYDRALAZINE HCL 20 MG/ML VIAL ONE (01:56)
[2019-05-05] MEDS ORDERED: NA CHLORIDE 0.9% 250 ML IV SCH (02:00)
[2019-05-05 05:38] LABS: Absolute Lymphocytes (CBC) 2.3 K/uL (0.7-4.9); Hematocrit 39.6 % (39.6-49.0); Lymphocytes % 24.5 % (15.3-44.8); MPV 7.5 fL (7.6-11.3); RBC Red Blood Cell Count 4.41 M/uL (4.33-5.43)
[2019-05-05 05:57] LABS: Protime INR 1.01
--- NOTE | 2019-05-05 06:03 | EKG ---
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
[2019-05-05 06:29] VITALS: BMI 32.7
--- NOTE | 2019-05-05 08:27 | RAD REPORT ---
EXAM DESCRIPTION: RAD - Chest Single View - 05/04/2019 11:26 pm CLINICAL HISTORY: Abdominal pain, abdominal distention COMPARISON: August 2017 TECHNIQUE: AP portable chest image was obtained 2314 hours . FINDINGS: Left lung field is clear. Loop recorder overlies the lower chest on the left. Heart and va sculature are normal. Small right-sided pleural effusion is present with scarring and/ or atelectasis in the right base. No significant infiltrative process seen. No acute bony abnormality seen. No acut e aortic findings suspected. IMPRESSION: Small right pleural effusion. No other significant finding.
[2019-05-05] MEDS: METRONIDAZOLE 500mg IVPB 500 MG/100 ML BAG IV SCH ×2 (08:51→16:33)
[2019-05-05] MEDS: PANTOPRAZOLE 40 MG INJ IVP SCH ×2 (08:52→21:27)
[2019-05-05] MEDS: CEFEPIME/SWI 1gm 10 ML IVP SCH ×2 (08:52→21:27)
[2019-05-05] MEDS ORDERED: CEFEPIME 1 GM/VIAL IV SCH (09:00)
--- NOTE | 2019-05-05 09:46 | P.HP ---
Certification for Inpatient Patient admitted to: Observation With expected LOS: <2 Midnights Patient will require the following post-hospital care: None Practitioner: I am a practitioner with admitting privileges, knowledge of patient current condition, hospital course, and medical plan of care. Services: Services provided to patient in accordance with Admission requirements found in Title 42 Section 412.3 of the Code of Federal Regulations Patient History Date of Service: 05/05/19 Reason for admission: Lower GI bleeding History of Present Illness: Patient is a 78-year-old gentleman who came to the hospital with lower GI bleeding. It on to the restroom and noticed that he had blood dripping from his anus. This continued for quite a while. He has always felt he had hemorrhoids. He had a colonoscopy about 15-20 years ago and had polyps removed. Since then he has gone back for further evaluation. Whenever he has noticed blood he has felt that it was a hemorrhoidal bleed. He came into the ER for further assessment. His hemoglobin was 13. Repeat is not changed. CT scan did not reveal any acute abnormalities. Patient most likely does have a hemorrhoid bleed. General surgery has been consulted. Patient may need colonoscopy prior to discharge or he may need to have get it done as an outpatient. Allergies codeine Allergy (Unverified 05/05/19 02:39) throw up levofloxacin [From Levaquin] Allergy (Unverified 05/05/19 02:39) Rash Penicillins Allergy (Unverified 05/05/19 02:39) Rash Sulfa (Sulfonamide Antibiotics) Allergy (Verified 05/05/19 02:39) Rash tramadol Adverse Reaction (Verified 05/05/19 02:39) irregular heart rhythm Home Medications: Aspirin [Aspir-Low] 81 mg PO DAILY 05/05/19 Atorvastatin Calcium [Lipitor] 10 mg PO BEDTIME 05/05/19 Metoprolol Tartrate [Lopressor] 25 mg PO BID 05/05/19 Primidone [Mysoline] 50 mg PO DAILY 05/05/19 - Past Medical/Surgical History Has patient received pneumonia vaccine in the past: Yes Diabetic: No -: irregular heartbeat- -: CABG feb 2018 -: tonsillectomy -: shoulder sx - Family History Mother Medical History: Heart disease, Hypertension, Diabetes, Cancer - Social History Smoking Status: Never smoker Alcohol use: No Place of Residence: Home Review of Systems 10-point ROS is otherwise unremarkable Physical Examination - Vital Signs Temperature: 98.0 F Blood Pressure: 171/92 Pulse: 84 Respirations: 18 Pulse Ox (%): 98 - Physical Exam General: Alert, In no apparent distress, Oriented x3 HEENT: Atraumatic, PERRLA, Mucous membr. moist/pink, EOMI, Sclerae nonicteric Neck: Supple, 2+ carotid pulse no bruit, No LAD, Without JVD or thyroid abnormality Respiratory: Clear to auscultation bilaterally, Normal air movement Cardiovascular: Regular rate/rhythm, Normal S1 S2, No murmurs Gastrointestinal: Normal bowel sounds, Soft and benign, Non-distended, No tenderness Musculoskeletal: No clubbing, No swelling, Tenderness Integumentary: No rashes Neurological: Normal gait, Normal speech, Normal strength at 5/5 x4 extr, Normal tone, Sensation intact, Cranial nerves 3-12 intact, Normal affect Lymphatics: No axilla or inguinal lymphadenopathy - Studies Laboratory Data (last 24 hrs) 05/04/19 21:51: PT 12.3, INR 1.04 05/04/19 21:51: WBC 8.8, Hgb 13.1 L, Hct 39.4 L, Plt Count 197 05/04/19 21:51: Sodium 140, Potassium 3.9, BUN 15, Creatinine 0.95, Glucose 94, Magnesium 2.5 H, Total Bilirubin 0.3, AST 8 L, ALT 19, Alkaline Phosphatase 84, Lipase 160 05/04/19 21:39: PT Cancelled, INR Cancelled 05/04/19 21:39: WBC Cancelled, Hgb Cancelled, Hct Cancelled, Plt Count Cancelled 05/04/19 21:39: Sodium Cancelled, Potassium Cancelled, BUN Cancelled, Creatinine Cancelled, Glucose Cancelled, Magnesium Cancelled, Total Bilirubin Cancelled, AST Cancelled, ALT Cancelled, Alkaline Phosphatase Cancelled, Lipase Cancelled Assessment & Plan - Problems (Diagnosis) (1) Lower GI bleeding Current Visit: Yes Status: Acute (2) Internal bleeding hemorrhoids Current Visit: Yes Status: Acute (3) History of colonoscopy with polypectomy Current Visit: Yes Status: Acute - Plan Plan: 1. Continue with IV hydration and PPI 2. Continue with IV antibiotics 3. Continue with pain control 4. NPO; clear liquids is H&H are stable 5. Surgery consultation 6. Serial H&H, and we will monitor LFTs and lipase along with electrolytes. 7. GI and DVT prophylaxis Discharge Plan: Home Plan to discharge in: 48 Hours - Advance Directives Does patient have a Living Will: No Does patient have a Durable POA for Healthcare: No - Code Status/Comfort Care Code Status Assessed: Yes Code Status: Full Code Critical Care: No Time Spent Managing PTS Care (In Minutes): 45
[2019-05-05] MEDS: HYDRALAZINE HCL 20 MG/ML VIAL IV PRN (10:24)
[2019-05-05] MEDS: NA CHLORIDE 0.9% 1,000 ML IV SCH (10:26)
--- NOTE | 2019-05-05 18:19 | CON ---
Date of Consultation: 05/05/2019 Brief History Of Present Illness: Patient is a 78-year-old gentleman who was in the hospital after h aving bleeding per rectum. He was in the restroom and noted significant blood clot passage approxima tely 1-1/2 days ago and continued to have significant bleeding from his rectum with it pulling down h is leg. At 1 point, he states it was a drip consistency, and as such he was concerned, he packed his anus with some dry wet wipes which dried out and this seemed to get good control. He then came to [facility] emergency room with the above-stated complaints. He has never had similar episodes before in the past. His last colonoscopy was approximately 20+ years ago. He does not recall the findings at that time other than small polyps. Since being admitted to the hospital, he has had some passage of bloo dy type stool, but significantly reduced compared to his prior. Past Medical History: Significant for irregular heartbeat, hypertension, hyperlipidemia. Past Surgical History: A CABG in February 2018, tonsillectomy, shoulder surgery. He has had no abdom inal surgery. Home Medications: 81 mg aspirin, Lipitor, Lopressor, and primidone. Allergies: CODEINE, LEVAQUIN, PENICILLIN, SULFA, AND TRAMADOL. Family History: Significant for heart disease, hypertension, diabetes, cancer in his mother. Social History: He denies smoking, alcohol, recreational drug use. He used to dip. Review of Systems: 10-point review of systems other than HPI, denies. Physical Examination: Vital Signs: At the time of examination, his vital signs were a BMI of 32.7. His heart rate was 84, respiratory rate 18, temperature 98.0, blood pressure 160/74. General: He is awake, alert, and oriented. Psychiatric: Appropriate. Conversive. HEENT: Normocephalic. Sclerae icteric. Mucous membranes are moist. Oropharynx clear. He has poor dentition. Neck: Supple. No JVD. Chest: Normal expansion and excursion. He has a well-healed surgical CABG scar. Abdomen: Soft, nontender, nondistended. No rebound. No guarding. No focal peritonitis. Extremities: No clubbing, cyanosis, edema. Skin: Warm and dry. Laboratory Data: Reveals a white blood cell count of 9.5; hemoglobin 13.3 from 13.1 on admission, ve ry stable and hematocrit is 39.6; platelet count is 203. PT 11.9, INR 1.1. His PTT was 29.7. His s odium on admission was 140, potassium 3.9, chloride 107, carbon dioxide 31, BUN 15, creatinine 0.9, g lucose is 94, magnesium 2.5, total bilirubin 0.3, direct component 0.1, ALT 19, alkaline phosphatase 84, lipase is 160. He had imaging performed as well including CT scan of the abdomen and pelvis as w ell as a chest x-ray. His chest x-ray read as a small right pleural effusion. No other significant findings appreciated. His CT abdomen and pelvis was read by the night radiologist as a right pleural effusion and no additional acute findings from a gastrointestinal standpoint. The official dictatio n is unavailable at this time due to computer error. Assessment And Plan: This is a 78-year-old male with gastrointestinal bleeding of uncertain source. 1.IV fluid hydration. 2.Serial hemoglobin checks. 3.I have explained that the patient needs to be monitored for hemodynamic instability. Should he be hemodynamically stable and his hemoglobin not drop, he can be discharged at that point with instruct ions to follow up as an outpatient for hemorrhoid management as well as planning for a colonoscopy. However, if his hemoglobin continues to drop, we will attempt to bowel prep him and see if we can ach ieve a colonoscopy at that time to better characterize the source of the bleeding. We will give the patient the hemorrhoid handout to discuss treatment for his hemorrhoid using a nonoperative managemen t to help get better control of this in the interim. I have explained the risks, benefits, and alter natives of the above stated plan. Patient agrees to proceed as indicated. 4. 5.Thank you for this interesting consult. ROXANA/CESAR Voice ID: [id number] Report ID: [id number]
[2019-05-06] MEDS: METRONIDAZOLE 500mg IVPB 500 MG/100 ML BAG IV SCH ×3 (00:27→16:09)
[2019-05-06] MEDS: NA CHLORIDE 0.9% 1,000 ML IV SCH ×3 (00:28→16:09)
[2019-05-06 05:36] LABS: Absolute Lymphocytes (CBC) 1.9 K/uL (0.7-4.9); Basophils % 0.4 % (0-1.3); Lymphocytes % 19.7 % (15.3-44.8); MPV 7.5 fL (7.6-11.3)
[2019-05-06] MEDS ORDERED: HYDROCORTISONE ACETATE 25MG SUPP PR PRN (07:31)
[2019-05-06] MEDS ORDERED: GOLYTELY 4000 ML PO SCH (08:00)
[2019-05-06] MEDS: CEFEPIME/SWI 1gm 10 ML IVP SCH ×2 (09:53→22:09)
[2019-05-06] MEDS: HYDRALAZINE HCL 20 MG/ML VIAL IV PRN (09:55)
[2019-05-06] MEDS: PANTOPRAZOLE 40 MG INJ IVP SCH ×2 (09:58→22:09)
[2019-05-06] MEDS ORDERED: GOLYTELY 4000 ML ONE (22:02)
--- NOTE | 2019-05-06 23:56 | PN ---
The patient still has tenderness in the left lower quadrant, however, according to the patient, it is better, very likely patient had diverticular bleeding. The patient is being scheduled for colonosco py. DARWIN/CESAR Voice ID: [id number] Report ID: [id number]
[2019-05-07] MEDS: METRONIDAZOLE 500mg IVPB 500 MG/100 ML BAG IV SCH ×3 (01:02→17:59)
[2019-05-07] MEDS: NA CHLORIDE 0.9% 1,000 ML IV SCH ×3 (02:00→15:35)
[2019-05-07] MEDS: HYDRALAZINE HCL 20 MG/ML VIAL IV PRN ×3 (05:44→22:00)
[2019-05-07 07:21] LABS: Absolute Lymphocytes (CBC) 2.6 K/uL (0.7-4.9); Basophils % 0.7 % (0-1.3); Lymphocytes % 23.6 % (15.3-44.8); MPV 7.4 fL (7.6-11.3); RBC Red Blood Cell Count 4.36 M/uL (4.33-5.43)
[2019-05-07 07:45] LABS: BUN Blood Urea Nitrogen 7 mg/dL (7-18); Bicarbonate 24 mmol/L (21-32); Glucose Level 110 mg/dL (74-106); Potassium 3.4 mmol/L (3.5-5.1); Sodium Level 140 mmol/L (136-145)
[2019-05-07] MEDS: CEFEPIME/SWI 1gm 10 ML IVP SCH ×2 (10:25→21:57)
[2019-05-07] MEDS ORDERED: EPINEPHRINE/PF 1 MG/ML AMP ONE (14:10)
[2019-05-07] MEDS ORDERED: propofoL 200 MG/20 ML VIAL IV ONE (14:23)
[2019-05-07] MEDS ORDERED: LIDOCAINE 1% MPF 5 ML VIAL ONE (14:23)
--- NOTE | 2019-05-07 14:35 | RAD REPORT ---
EXAM DESCRIPTION: CT - Abdomen Pelvis W Contrast - 05/05/2019 7:12 am CLINICAL HISTORY: The patient is 78 years old and is Male; ABD PAIN TECHNIQUE: Axial computed tomography images of the abdomen and pelvis with intravenous contrast. S agittal and coronal reformatted images were created and reviewed. This CT exam was performed using one or more of the following dose reduction techniques: automated exposure control, adjustment of t he mA and/or kV according to patient size, and/or use of iterative reconstruction technique. COMPARISON: No relevant prior studies available. FINDINGS: LUNG BASES: Dependent atelectasis within the right lung base is present. PLEURAL SPACE: A moderate right pleural effusion is present. ABDOMEN: LIVER: Unremarkable. No mass. GALLBLADDER AND BILE DUCTS: Gallbladder is physiologically distended. No calcified gallstones are seen. PANCREAS: No ductal dilation. No mass. SPLEEN: Unremarkable. ADRENALS: A 2 cm low attenuating right adrenal gland nodule measuring 27 Hounsfield units is pre sent. The left adrenal gland is normal. KIDNEYS AND URETERS: Punctate bilateral intrarenal calcifications are present. The kidneys enhan ce symmetrically. No hydronephrosis or hydroureter of either kidney is seen. STOMACH AND BOWEL: The stomach is minimally distended with oral contrast. Oral contrast is noted throughout majority the small bowel which is normal in caliber. Oral contrast and stool are present throughout the colon. There is no mucosal thickening or evidence of bowel obstruction. PELVIS: APPENDIX: The appendix is normal in caliber without surrounding inflammation. BLADDER: Unremarkable. No mass. REPRODUCTIVE: Unremarkable as visualized. ABDOMEN and PELVIS: INTRAPERITONEAL SPACE: Unremarkable. No free air. No significant fluid collection. BONES/JOINTS: No acute fracture. SOFT TISSUES: The soft tissues are normal. VASCULATURE: Unremarkable. No abdominal aortic aneurysm. LYMPH NODES: Unremarkable. No enlarged lymph nodes. IMPRESSION: 1. Moderate right pleural effusion with compressive atelectasis. 2. No bowel obstruction. Normal appendix. 3. Right adrenal gland nodule. Recommend adrenal washout CT or chemical shift MRI for further evalu ation on a nonemergent basis. Electronically signed by: Angelica Charles MD 05/05/2019 12:57 AM HEALTH CARE SANITARY TECHNICIAN Due to temporary technical issues with the PACS/Fluency reporting system, reports are being signed by the in house radiologist as a courtesy to ensure prompt reporting. The interpreting radiologist is f ully responsible for the content of the report.
--- NOTE | 2019-05-07 14:35 | ENDO RPT ---
[address], [address] COLONOSCOPY PROCEDURE REPORT EXAM DATE: 05/07/2019 PATIENT NAME: Gary Grimaldo MR #: [id number] BIRTHDATE: 1940 ATTENDING: Houston Deshpande DR STATUS: inpatient - 7 METAL MODEL BUILDER: Hallie Rodrigues RN and Neo [facility] INDICATIONS: The patient is a 78 yr old Male here for a colonoscopy due to melenic bleeding and treatment of bleeding PROCEDURE PERFORMED: Colonoscopy with biopsy - cold polypectomy MEDICATIONS: Per Anesthesia. ESTIMATED BLOOD LOSS: None CONSENT: The patient understands the risks and benefits of the procedure and understands that these risks include, but are not limited to: sedation, allergic reaction, infection, perforation and/or bleeding. Alternative means of evaluation and treatment include, among others: physical exam, x-rays, and/or surgical intervention. The patient elects to proceed with this endoscopic procedure. DESCRIPTION OF PROCEDURE: During intra-op preparation period all mechanical medical equipment was checked for proper function. Hand hygiene and appropriate measures for infection prevention was taken. Procedure, possible complications, alternatives including, but not limited to possibility of bleeding, perforation, tear, infection, sepsis, need for surgery, need for blood transfusion, were explained to the patient. After the risks, benefits and alternatives of the procedure were thoroughly explained, Informed consent was verified, confirmed and timeout was successfully executed by the treatment team. The patient was placed in the left lateral position. A digital rectal exam was performed and revealed internal hemorrhoids. After appropriate level of anesthesia, the scope was passed. The EC-[id number] ([id number]) endoscope was introduced through the anus and advanced to the cecum, which was identified by both the appendix and ileocecal valve. The quality of the prep was good. The instrument was then slowly withdrawn as the colon was fully examined. Scope withdrawal time was 9 minutes. COLON FINDINGS: Mild diverticulosis was noted in the sigmoid colon and at the cecum. No bleeding was noted from the diverticulosis. Three medium sized polypoid shaped pedunculated polyps with friable surfaces were found in the transverse colon and sigmoid colon. Bleeding sigmoid polyp was noted. Retroflexed views revealed no abnormalities. The scope was then completely withdrawn from the patient and the procedure terminated. ADVERSE EVENTS: There were no complications. IMPRESSIONS: 1. Mild diverticulosis was noted in the sigmoid colon and at the cecum 2. Three medium sized pedunculated polyps were found in the transverse colon and sigmoid colon; bleeding sigmoid polyp 3. Bleeing from sigmoid polyp RECOMMENDATIONS: 1. avoid NSAIDS for 2 weeks 2. await biopsy results 3. fiber rich diet 4. follow-up: office 2 week(s) 5. Monitor for any evidence of rectal bleeding. 6. hemorrhoidal hygiene 7. increase dietary water RECALL: Return in 6 month(s) for Colonoscopy, pending biopsy results. Houston Deshpande DR eSigned: Houston Deshpande DR 05/07/2019 2:34 PM cc: CPT CODES: ICD9 CODES: 1. 455.2 Internal hemorrhoids with other complication 2. 211.3 Benign neoplasm of colon PATIENT NAME: Gary Grimaldo MR#: [id number]
[2019-05-07] MEDS ORDERED: NA CHLORIDE 0.9% 500 ML IV SCH (16:00)
--- NOTE | 2019-05-07 22:33 | PN ---
The patient had a colonoscopy today. He had polypectomy and documented diverticula and diverticuliti s. The patient, however, has minimal tenderness. He will be switched to oral antibiotic and if he d oes well, he will be discharged tomorrow with oral antibiotics. DARWIN/CESAR Voice ID: [id number] Report ID: [id number]
[2019-05-08] MEDS: metroNIDAZOLE 500 MG TABLET PO SCH ×3 (00:13→13:44)
[2019-05-08] MEDS: NA CHLORIDE 0.9% 1,000 ML IV SCH (05:23)
[2019-05-08] MEDS: CEFEPIME/SWI 1gm 10 ML IVP SCH (08:22)
[2019-05-08 11:15] LABS: Hematocrit 35.6 % (39.6-49.0)
[2019-05-08 13:33] VITALS: O2SAT 95
[2019-05-08 17:30] VITALS: BP 176/84; TEMP 98.9
== END 2019-05-08 17:08 | disposition home or self-care (01) ==
LOC: ER 20:11 → INTOOBSV 05-05 01:09 → ERHOLD 05-05 01:09 → 2ND 05-05 02:05
PROVIDERS: ADMIT Hospitalist; ATTEND Hospitalist
PROC: 0DBL8ZX Excision of Transverse Colon, Via Natural or Artificial Opening Endoscopic, Diagnostic (ICD-10-PCS; 2019-05-07)
PROC: 0DBN8ZX Excision of Sigmoid Colon, Via Natural or Artificial Opening Endoscopic, Diagnostic (ICD-10-PCS; principal; 2019-05-07 13:30)
DX: K92.2 Gastrointestinal hemorrhage, unspecified (principal); K64.8 Other hemorrhoids; K92.1 Melena; D12.3 Benign neoplasm of transverse colon; D12.5 Benign neoplasm of sigmoid colon; Z88.0 Allergy status to penicillin; Z88.2 Allergy status to sulfonamides; Z79.82 Long term (current) use of aspirin; Z95.1 Presence of aortocoronary bypass graft; K57.30 Diverticulosis of large intestine without perforation or abscess without bleeding
CPT/HCPCS: 96365; 96368; 93005; 85025 ×4; 80048 ×2; 36415 ×4; 83735; 85610 ×2; 80076; 88305 ×2; 85730; 85018; 85014; 84484; 83690; 83880; 74177; 71045; 96375; 99285; 96366; 45380; Q9967; J0360 ×6; J2704; C9113 ×4; J0696; J0692 ×5; G0378 ×6; J7030 ×6; J0171

== ENCOUNTER 2022-08-05 06:35 | Day surgery (SDC) | payer OTHER ==
[2022-08-03 10:25] LABS: Potassium 5.1 mmol/L (3.5-5.1)
--- NOTE | 2022-08-03 13:01 | EKG ---
Test Date: 2022-08-03 Test Time: 09:53:33 Allergist Immunologist: MIKE MEASUREMENT RESULTS: Intervals: Rate: 56 MI: 180 QRSD: 86 QT: 438 QTc: 422 [place]: P: 59 MI: 180 QRS: -79 T: 87 INTERPRETIVE STATEMENTS: Sinus bradycardia with marked sinus arrhythmia Left axis deviation Nonspecific ST abnormality Abnormal ECG Compared to ECG 05/04/2019 22:03:22 ST (T wave) deviation now present Sinus rhythm no longer present Atrial premature complex(es) no longer present Electronically Signed On 08-03-22 13:01:06 DIGITAL DATA ANALYST by Ananda Meyer
[2022-08-05] MEDS ORDERED: Ringers Lactate 1,000 ML IV ONE (06:45)
[2022-08-05] MEDS ORDERED: LIDOCAINE 1% MPF 5 ML VIAL ONE (08:04)
[2022-08-05] MEDS ORDERED: propofoL 200 MG/20 ML VIAL IV ONE (08:04)
[2022-08-05] MEDS ORDERED: EPINEPHRINE/PF 1 MG/ML AMP ONE (08:15)
[2022-08-05 09:23] VITALS: TEMP 97.6
[2022-08-05 09:24] VITALS: BP 126/62; O2SAT 99
== END 2022-08-05 09:30 | disposition home or self-care (01) ==
LOC: OR 06:35
PROVIDERS: ATTEND Surgery
PROC: 0DB68ZX Excision of Stomach, Via Natural or Artificial Opening Endoscopic, Diagnostic (ICD-10-PCS; 2022-08-05)
PROC: 0DBN8ZX Excision of Sigmoid Colon, Via Natural or Artificial Opening Endoscopic, Diagnostic (ICD-10-PCS; 2022-08-05)
PROC: 0DB98ZX Excision of Duodenum, Via Natural or Artificial Opening Endoscopic, Diagnostic (ICD-10-PCS; principal; 2022-08-05 08:00)
PROC: 0DB78ZX Excision of Stomach, Pylorus, Via Natural or Artificial Opening Endoscopic, Diagnostic (ICD-10-PCS; 2022-08-05 08:00)
DX: K21.9 Gastro-esophageal reflux disease without esophagitis (principal); D64.9 Anemia, unspecified; K29.50 Unspecified chronic gastritis without bleeding; K63.5 Polyp of colon; K64.8 Other hemorrhoids; K57.30 Diverticulosis of large intestine without perforation or abscess without bleeding; K62.5 Hemorrhage of anus and rectum; Z86.010 Personal history of colon polyps
CPT/HCPCS: 36415; 80048; 88305; 88312; 93005; J0171; J2001; J2704; J7120